=== PATIENT | male | born 1980 | race Caucasian/White ===

== ENCOUNTER 2017-08-12 22:28 | Emergency (ER) | payer SELFPAY ==
[2017-08-12] MEDS ORDERED: EPINEPHrine HCL 1 MG/10 ML SYRG IV ONE (22:37)
[2017-08-12] MEDS ORDERED: SODIUM BICARBONATE 8.4% INJ 50ML SYRINGE IV ONE (22:37)
[2017-08-12] MEDS ORDERED: CALCIUM CHLOR(10%) 100MG/ML 10ML SYRINGE IV ONE (22:37)
== END 2017-08-13 02:29 | disposition expired ==
LOC: EDBD 22:28 → ER 22:36
DX: I46.9 Cardiac arrest, cause unspecified (principal)
CPT/HCPCS: 92950; 99285; J0171